=== PATIENT | male | born 1955 | race Hispanic/Latino ===

== ENCOUNTER 2018-01-27 06:53 | Day surgery (SDC) | payer OTHER ==
[2018-01-25 15:38] VITALS: BP 155/84
[2018-01-27] VITALS (18 sets, daily range): BP systolic 119–149; BP diastolic 75–97
[~2018-01-27] VITALS: Ht 167.6 cm; Wt 85.5 kg
[~2018-01-27 06:53] MED LIST: ATOR40TA71 PO; FINA5TAB41 PO; LISI1TAB11 PO; PANT40TA25 PO; TAMS0.4C32 PO
[2018-01-27] MEDS: CEFTRIAXONE SODIUM 1 GM IVP SCH ×2 (07:00→11:35)
[2018-01-27] MEDS ORDERED: LACTATED RINGERS 1000ML 1,000 ML IV ONE (07:43)
[2018-01-27] MEDS ORDERED: ROCURONIUM BROMIDE 10MG/1ML 5ML VL ONE (11:26)
[2018-01-27] MEDS ORDERED: PROPOFOL 10 MG/ML 20ML VIAL IV ONE (11:27)
[2018-01-27] MEDS ORDERED: MIDAZOLAM HCL 1 MG/ML 2ML VIAL ONE (11:27)
[2018-01-27] MEDS ORDERED: FENTANYL CITRATE PF 50 MCG/1 ML 2ML VIAL ONE ×3 (11:27→12:57)
[2018-01-27] MEDS ORDERED: EPHEDRINE SULFATE 50 MG/ML AMPULE ONE (11:46)
[2018-01-27] MEDS ORDERED: MEPERIDINE-PF 25 MG/ML SYG ONE (13:19)
[2018-01-27] MEDS ORDERED: OPIUM/BELLADONNA ALKALOIDS 1 EACH SUPP.RECT RC ONE (13:20)
[2018-01-27] MEDS ORDERED: PHENAZOPYRIDINE HCL 200 MG TABLET ONE (14:41)
== END 2018-01-27 16:00 | disposition home or self-care (01) ==
LOC: DAH 06:53
PROVIDERS: ATTEND Urology
DX: N41.1 Chronic prostatitis (principal); R97.20 Elevated prostate specific antigen [PSA]; I10 Essential (primary) hypertension; K21.9 Gastro-esophageal reflux disease without esophagitis; E78.00 Pure hypercholesterolemia, unspecified; I25.2 Old myocardial infarction; E78.5 Hyperlipidemia, unspecified; E66.9 Obesity, unspecified; R73.03 Prediabetes; Z68.34 Body mass index [BMI] 34.0-34.9, adult; Z79.899 Other long term (current) drug therapy; Z98.890 Other specified postprocedural states
CPT/HCPCS: 52648; 88305; A4218; A4340; A4354; A4358; A4510; A4600; J0696; J2175; J2250; J2704; J3010 ×3; J3490 ×2; J7120 ×2

== ENCOUNTER → 2024-11-02 | Outpatient (CLI) | payer MEDICARE ==
[~2024-11-02] MED LIST changes: -LISI1TAB11 PO; +LISI1TAB51 PO; -PANT40TA25 PO; +PANT40TA54 PO
--- NOTE | 2024-11-02 16:49 | HMCIMG ---
THORACIC SPINE 3VWS HISTORY: Pain COMPARISON: None FINDINGS: 3 images of the thoracic spine were obtained. There is straightening of normal lordotic curvature which may be related to muscle spasm or positioning. No loss of vertebral height is seen. No fracture or dislocation is seen. Degenerative changes are seen. IMPRESSION: 1. No fracture is seen. DJD.
== END | disposition home or self-care (01) ==
LOC: RAH 12:00
PROVIDERS: ATTEND Internal Medicine
DX: M47.814 Spondylosis without myelopathy or radiculopathy, thoracic region (principal); M54.6 Pain in thoracic spine; G89.29 Other chronic pain
CPT/HCPCS: 72072